=== PATIENT | female | born 1990 | race Two or more races ===

== ENCOUNTER 2024-01-23 13:06 | Emergency (ER) | payer MEDICAID, SELFPAY ==
[2024-01-23 13:08] VITALS: PULSE 84; RESP 18; O2SAT 99
[2024-01-23 13:20] VITALS: BP 109/75; PULSE 99; RESP 18; TEMP 37.3; O2SAT 98; BMI 22.4
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
== END 2024-01-23 15:33 | disposition home or self-care (01) ==
PROVIDERS: Emergency Provider Emergency Medicine
DX: S13.4XXA Sprain of ligaments of cervical spine, initial encounter (principal); R07.89 Other chest pain; V89.2XXA Person injured in unspecified motor-vehicle accident, traffic, initial encounter
CPT/HCPCS: 70450; 71101; 99284